=== PATIENT | male | born 2000 | race Two or more races ===

== ENCOUNTER 2019-08-02 03:18 | Emergency (ER) | payer SELFPAY ==
[~2019-08-02] VITALS: Ht 190.5 cm; Wt 124.7 kg
[2019-08-02] MEDS ORDERED: Tetanus/Diptheria/Pertussis IM ONE (03:45)
--- NOTE | 2019-08-02 03:58 | NUR ---
ER Nurse Note: Pt walked in c/o RT hand second digit lac. Pt stated he cut his finger on a pocket knife around 0200. Pt stated active bleeding during inital injury. Finger not bleeding. tdap shot administered. Wound irrigated. Will continue to montior.
[2019-08-02 04:00] VITALS: BP 120/73
[2019-08-02] MEDS ORDERED: BACITRACIN15 GM TOPIC (04:42)
[2019-08-02] MEDS ORDERED: CEPHALEXIN500 MG ORAL (04:42)
[2019-08-02] MEDS ORDERED: Bacitracin Oint UD TOPIC ONE ×2 (04:43→05:00)
[2019-08-02 04:45] VITALS: BP 120/73
--- NOTE | 2019-08-02 04:55 | NUR ---
ED Nurse Note: All orders completed per ERMD orders. Pt cleared by health care Provider for discharge. DC instructions/prescription was given and explained to pt and verbalized understanding of teachings. Instructed pt to follow up with primary care physican within one week. All medical deviecs such as ID band removed. Pt is AAO x4, ambulatory and left with all personal belongings.
--- NOTE | 2019-08-02 06:04 | Emergency Room Report ---
History of Present Illness General Chief Complaint: Upper Extremity Injury Source: Patient Present Illness HPI 19-year-old male presents ED with laceration to right index finger. States that he cut himself with a dirty knife. Happened tonight. Tetanus unknown. Pain is dull, 5 out of 10, nonradiating. States it was initially bleeding a lot but has since subsided. No other aggravating relieving factors. Denies any other associated symptoms Allergies: Coded Allergies: No Known Allergies (Unverified , 08/02/19) Patient History Past Medical History: none Past Surgical History: none Pertinent Family History: none Social History: Denies: smoking, alcohol use, drug use Immunizations: UTD Reviewed Nursing Documentation: PMH: Agreed; PSxH: Agreed Nursing Documentation-PMH Past Medical History: No Stated History Review of Systems All Other Systems: negative except mentioned in HPI Physical Exam Vital Signs Date Time Temp Pulse Resp B/P (MAP) Pulse Ox O2 Delivery O2 Flow Rate FiO2 08/02/19 03:30 99.0 104 19 120/73 (89) 95 Room Air Sp02 EP Interpretation: reviewed, normal General Appearance: no apparent distress, alert, GCS 15, non-toxic, obese Head: normocephalic Eyes: bilateral eye normal inspection, bilateral eye PERRL ENT: normal ENT inspection Neck: normal inspection Respiratory: normal inspection Cardiovascular #1: normal inspection Gastrointestinal: normal inspection Rectal: deferred Genitourinary: no CVA tenderness Musculoskeletal: normal inspection Neurologic: alert, motor strength/tone normal, oriented x3, sensory intact, responsive, speech normal Psychiatric: normal inspection Skin: laceration - 2cm laceration to R index finger. no active bleeding Lymphatic: normal inspection Procedures Laceration/Wound Repair Laceration/Wound Repair : Consent: Verbal Wound Location: upper extremity - R index finger Wound's Depth, Shape: linear Wound Explored: clean Betadine Prep?: No Anesthesia: 1% Lidocaine Wound Debrided: minimal Wound Repaired With: sutures Suture Size/Type: 5:0, proline Layer Closure?: No Sterile Dressing Applied?: Yes Splint Applied?: No Sling Applied?: No Patient Tolerated: Well Complications: None Medical Decision Making Diagnostic Impression: Primary Impression: Laceration of finger Qualified Codes: S61.210A - Laceration without foreign body of right index finger without damage to nail, initial encounter ER Course Hospital Course 19-year-old M presents to ED s/p laceration R index finger using knife Clinical course Patient placed on stretcher. After initial history and physical I ordered tetanus shot. wound irrigated. Anesthesia provided with lidocaine. Laceration repaired w/o complication. Dressing/bacitracin applied. Diagnosis - laceration of finger Stable and discharged to home with prescription for keflex, bacitracin. wound Care instructions given. Followup with PMD in 10-12 days for suture removal. Return to ED if any signs of infection develop Last Vital Signs Date Time Temp Pulse Resp B/P (MAP) Pulse Ox O2 Delivery O2 Flow Rate FiO2 08/02/19 04:45 99.0 86 19 120/73 95 Room Air Status: improved Disposition: HOME, SELF-CARE Condition: Stable Scripts Bacitracin (Bacitracin) 28.4 Gm Oint...g. 1 APPLIC TOPIC THREE TIMES A DAY, #28.4 GM Prov: Sergio Gibbs MD 08/02/19 Cephalexin* (KEFLEX*) 500 Mg Capsule 500 MG ORAL EVERY 6 HOURS for 7 Days, CAP Prov: Sergio Gibbs MD 08/02/19 Referrals: NOT CHOSEN IPA/,REFERRING (PCP) [facility] Patient Instructions: Laceration Care, Adult, [id number] Additional Instructions: have sutures removed in 10-12 days. return to ED if any signs of infection develop Sergio Gibbs MD Aug 02, 2019 06:04
== END 2019-08-02 04:55 | disposition home or self-care (01) ==
LOC: EMR 03:44
DX: S61.210A Laceration without foreign body of right index finger without damage to nail, initial encounter (principal); W26.0XXA Contact with knife, initial encounter; Y93.9 Activity, unspecified; Y92.9 Unspecified place or not applicable
CPT/HCPCS: 90471; 90715; 99282

== ENCOUNTER 2019-08-19 13:33 | Emergency (ER) | payer SELFPAY ==
[~2019-08-19] VITALS: Ht 190.5 cm; Wt 117.9 kg
[~2019-08-19 13:33] MED LIST: BACITRACIN15 GM TOPIC; CEPHALEXIN500 MG ORAL
[2019-08-19 13:58] VITALS: BP 113/57
--- NOTE | 2019-08-19 14:03 | NUR ---
ED Nurse Note: Patient here for suture removal from right index finger; well approximated wound with 4 stitches noted without redness, swelling, tenderness or drainge. Patient completed antibiotic meds.
--- NOTE | 2019-08-19 14:27 | Emergency Room Report ---
History of Present Illness General Chief Complaint: Wound Recheck/Suture Removal Source: Patient Present Illness HPI 19-year-old male presents to the emergency department for suture removal. Patient had several stitches placed in the right thumb approximately 15 days ago. Patient denies pain, erythema, tenderness, discharge or bleeding. Patient reports he is up-to-date with all vaccinations. Patient denies having any other medical symptoms at this time. COVID-19 risk:Travel to affect: No Allergies: Coded Allergies: No Known Allergies (Unverified , 08/02/19) Patient History Past Medical History: see triage record Past Surgical History: none Pertinent Family History: none Immunizations: UTD Reviewed Nursing Documentation: PMH: Agreed; PSxH: Agreed Nursing Documentation-PMH Past Medical History: No Stated History Review of Systems All Other Systems: negative except mentioned in HPI Physical Exam Vital Signs Date Time Temp Pulse Resp B/P (MAP) Pulse Ox O2 Delivery O2 Flow Rate FiO2 08/19/19 13:58 98.1 15 113/57 96 Room Air 08/19/19 13:58 84 Sp02 EP Interpretation: reviewed, normal General Appearance: no apparent distress, alert, GCS 15, non-toxic Head: normocephalic, atraumatic Eyes: bilateral eye normal inspection, bilateral eye PERRL ENT: hearing grossly normal, normal voice Neck: full range of motion Respiratory: lungs clear, normal breath sounds, speaking full sentences Cardiovascular #1: regular rate, rhythm, normal capillary refill Musculoskeletal: normal range of motion, gait/station normal, non-tender Neurologic: alert, motor strength/tone normal, oriented x3, sensory intact, responsive, speech normal Psychiatric: judgement/insight normal Skin: wd healing/no infection noted - 1 cm sutured laceration to the right thumb Medical Decision Making PA Attestation Dr. Gibbs is my supervising Physician whom patient management has been discussed with. Diagnostic Impression: Primary Impression: Encounter for removal of sutures ER Course 19-year-old male presents to the emergency department for suture removal. Patient had several stitches placed in the right thumb approximately 15 days ago. Patient denies pain, erythema, tenderness, discharge or bleeding. Patient reports he is up-to-date with all vaccinations. Patient denies having any other medical symptoms at this time. Ddx considered but are not limited to laceration, tendon injury, cellulitis, dehiscence. Vital signs: are WNL, pt. is afebrile H&PE are most consistent with: healed laceration of the Right thumb. ORDERS: none required at this time, the diagnosis is clinical ED INTERVENTIONS: - 4 Sutures removed. DISCHARGE: At this time pt. is stable for d/c to home. Will provide printed patient care instructions, and any necessary prescriptions. Care plan and follow up instructions have been discussed with the patient prior to discharge. Last Vital Signs Date Time Temp Pulse Resp B/P (MAP) Pulse Ox O2 Delivery O2 Flow Rate FiO2 08/19/19 13:58 98.1 84 15 113/57 (75) 96 Room Air Disposition: HOME, SELF-CARE Condition: Stable Scripts No Active Prescriptions or Reported Meds Patient Instructions: Suture Removal, Care After Additional Instructions: Take any previously prescribed medications as directed. Follow up with a Primary Care Provider in 3-5 days, even if your symptoms have resolved. Return sooner to ED if new symptoms occur, or current symptoms become worse. - Please note that this Emergency Department Report was dictated using [employer] director technology software, occasionally this can lead to erroneous entry secondary to interpretation by the dictation equipment. Carol Ann Perez Aug 19, 2019 14:27
--- NOTE | 2019-08-19 14:50 | NUR ---
ELOPEMENT: Pt did not want to wait for his discharge papers. ID band removed and pt walked out of the ED with steady gait.
== END 2019-08-19 14:50 | disposition home or self-care (01) ==
LOC: EMR 14:42
DX: S61.011A Laceration without foreign body of right thumb without damage to nail, initial encounter (principal); Z48.02 Encounter for removal of sutures; X58.XXXA Exposure to other specified factors, initial encounter; Y92.9 Unspecified place or not applicable
CPT/HCPCS: 99281